=== PATIENT | female | born 1965 | race Caucasian/White ===

== ENCOUNTER 2021-03-09 18:23 | Emergency (ER) | payer OTHER ==
[~2021-03-09] VITALS: Ht 167.6 cm; Wt 59.0 kg
== END 2021-03-09 19:55 | disposition home or self-care (01) ==
LOC: ER 18:23
DX: F41.0 Panic disorder [episodic paroxysmal anxiety] (principal); F43.9 Reaction to severe stress, unspecified

== ENCOUNTER 2024-10-13 09:22 | Emergency (ER) | payer OTHER ==
[~2024-10-13] VITALS: Ht 172.7 cm; Wt 63.5 kg
[2024-10-13] MEDS ORDERED: [UNRECOGNIZED DRUG - OTHER] (10:14)
== END 2024-10-13 13:27 | disposition home or self-care (01) ==
LOC: ER 09:26
DX: G89.11 Acute pain due to trauma (principal); M79.672 Pain in left foot; Z88.6 Allergy status to analgesic agent